=== PATIENT | female | born 1985 | race Caucasian/White ===

== ENCOUNTER 2021-11-30 13:50 | Emergency (ER) | payer MEDICAID, OTHER, SELFPAY | END 2021-11-30 17:59 | disposition home or self-care (01) | LOC: CSHERS 13:50 | DX: M79.10 Myalgia, unspecified site (principal); R11.0 Nausea; Z20.822 Contact with and (suspected) exposure to COVID-19; F17.200 Nicotine dependence, unspecified, uncomplicated | CPT/HCPCS: 99283; U0003; U0005 ==